=== PATIENT | male | born 1960 | race Caucasian/White ===

== ENCOUNTER 2016-06-22 16:39 | Observation (INO) | payer OTHER ==
[~2016-06-22] VITALS: Ht 180.3 cm; Wt 73.8 kg
[~2016-06-22 16:39] MED LIST: HYDROCODON-ACE1 EAC7 PO; NOHOMEMEDS
[2016-06-22 17:16] LABS: HEMATOCRIT 42.4 % (38.0-50.0); MCH 31.4 PG (29.0-34.0); MCHC 33.5 G/DL (30.0-36.0); MCV 93.8 FL (86-99); MEAN PLAT.VOLUME 9.7 uM^3 (9.0-12.4); PLATELET COUNT 220 K/uL (156-360); RBC DIS.WIDTH-CV 12.4 % (11.8-14.6); RBC DIS.WIDTH-SD 42.9 % (39-53); RED BLOOD COUNT 4.52 M/uL (4.00-5.50); WHITE BLOOD COUNT 4.9 K/uL (4.1-10.2)
[2016-06-22 17:29] LABS: CHLORIDE 102 mEq/L (99-109); POTASSIUM 3.8 mEq/L (3.7-5.4); SODIUM 138 mEq/L (136-147)
[2016-06-22 17:31] LABS: GLUCOSE 107 mg/dL (70-99)
[2016-06-22 17:33] LABS: ANION GAP 9 MEQ/L (2-14)
[2016-06-22 17:34] LABS: SERUM ETHYL ALCOHOL < 10 mg/dL
[2016-06-22 17:35] LABS: GFR ESTIMATE (CALCULATED) > 59 mL/min/
[2016-06-22 17:36] LABS: UREA NITROGEN (BUN) 10 mg/dL (9-23)
[2016-06-22 18:02] LABS: AMPHETAMINE PRESUMPTIVE POSITIVE (500 ng/mL); BARBITURATES NEGATIVE (200 ng/mL); BENZODIAZEPINES NEGATIVE (150 ng/mL); COCAINE NEGATIVE (150 ng/mL); INTERNAL CONTROLS VALID? YES; METHADONE NEGATIVE (200 ng/mL); METHAMPHETAMINE NEGATIVE (500 ng/mL); OPIATES (MORPHINE) NEGATIVE (100 ng/mL); OXYCODONE PRESUMPTIVE POSITIVE (100 ng/mL); PHENCYCLIDINE NEGATIVE (25 ng/mL); PROPOXYPHENE NEGATIVE (300 ng/mL); THC CANNABINOIDS NEGATIVE (50 ng/mL); TRICYCLIC ANTIDEPRESSANTS NEGATIVE (300 ng/mL)
[2016-06-22 18:12] LABS: ADD MEDTOX COMMENT Y
[2016-06-22] MEDS ORDERED: CIALIS20 MG PO (19:32)
[2016-06-22] MEDS ORDERED: OXYCODONE HCL10 MG PO (19:32)
[2016-06-22] MEDS ORDERED: LO-DOSE ASPIRIN81 M1 PO (19:33)
[2016-06-22 23:00] VITALS: BP 121/70
[2016-06-23 04:55] VITALS: BP 109/78
[2016-06-23 06:54] LABS: Estimated Average Glucose 108 mg/dL (70-123); HEMOGLOBIN A1c (GLYCOHEMOGLOB) 5.4 % HGB (Below 5.7)
[2016-06-23 08:00] LABS: HEMATOCRIT 41.3 % (38.0-50.0); MCH 31.3 PG (29.0-34.0); MCHC 33.2 G/DL (30.0-36.0); MCV 94.3 FL (86-99); MEAN PLAT.VOLUME 9.9 uM^3 (9.0-12.4); PLATELET COUNT 207 K/uL (156-360); RBC DIS.WIDTH-CV 12.7 % (11.8-14.6); RBC DIS.WIDTH-SD 43.9 % (39-53); RED BLOOD COUNT 4.38 M/uL (4.00-5.50); WHITE BLOOD COUNT 4.6 K/uL (4.1-10.2)
[2016-06-23 08:27] VITALS: BP 134/80
[2016-06-23 08:30] LABS: HDL CHOLESTEROL 61 MG/DL (Desirable>=40); LDL CHOLESTEROL 106 mg/dL (Desirable<100); NON-HDL CHOLESTEROL 135 mg/dL (Desirable<160); TOTAL CHOLESTEROL 196 mg/dL (Desirable<200); TRIGLYCERIDES 145 MG/DL (Normal: <150)
[2016-06-23] MEDS ORDERED: PRAVASTATIN SOD40 MG PO (10:38)
[2016-06-23] MEDS ORDERED: LO-DOSE ASPIRIN81 M2 PO (12:56)
== END 2016-06-23 13:43 | disposition home or self-care (01) ==
LOC: EME 16:39 → EDOF 21:40 → 5WEST 21:40 → EDOF 21:40 → 5WEST 22:47
PROVIDERS: Hospitalist
DX: G45.9 Transient cerebral ischemic attack, unspecified (principal); G89.29 Other chronic pain; M79.604 Pain in right leg; M54.2 Cervicalgia; Z87.891 Personal history of nicotine dependence
CPT/HCPCS: 70450; 70496; 70498; 70551; 71020; 80048; 80061; 82607; 82746; 83036; 84443; 84999; 85027; 93005; 99281; 99285; G0378; G0480